=== PATIENT | male | born 1980 | race Caucasian/White ===

== ENCOUNTER 2018-08-05 09:19 | Inpatient (IN) | payer BC ==
[~2018-08-05] VITALS: Ht 182.9 cm; Wt 88.1 kg
--- NOTE | 2018-08-05 09:39 | NUR ---
pt ambulatory with steady gait to room
--- NOTE | 2018-08-05 09:41 | NUR ---
38 Y/O MALE PRESENTS TO ED WITH C/O ABDOMINAL PAIN. "I HAVE SOME ABDOMINAL PAIN. IT'S BEEN A FE WEEKS AND IT'S GOTTEN WORSE. IT GOES INTO MY BACK AND IT'S RIGHT ABOVE MY BELLY BUTTON. I DRANK A LOT SAT NIGHT. I'VE BEEN ON [facility] 325 DAILY BECAUSE I HAVE A CLOT IN MY ARM." NO C/O N/V/D, TRAUMA, SYNCOPE, CP, SOB. 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
[2018-08-05] MEDS ORDERED: SODIUM CHLORIDE 0.9% 1,000 ML IV ONE (09:49)
[2018-08-05] MEDS ORDERED: HYDROmorphone 2 MG/ML, 1ML IVPush PRN ×2 (10:00→11:30)
[2018-08-05] MEDS ORDERED: SODIUM CHLORIDE FLUSH 10ML SYR IVF ONE (10:00)
[2018-08-05] MEDS ORDERED: ONDANSETRON 2MG/ML, 2ML IVPush ONE (10:00)
[2018-08-05] MEDS ORDERED: HYDROmorphone 2 MG/ML, 1ML ONE (10:03)
--- NOTE | 2018-08-05 10:06 | NUR ---
PT WAS A TRANSFER FROM [facility]. PT ARRIVED WITH PIV.
--- NOTE | 2018-08-05 10:13 | NUR ---
PT RESTING ON GURNEY. NO ACUTE DISTRESS NOTED. BEDSIDE. NO NEEDS REQUESTED AT THIS TIME.
[2018-08-05 10:19] LABS: BASOPHILS # (AUTO) 0.03 x10^3/uL (0-0.1); BASOPHILS % (AUTO) 0 % (0-1); EOSINOPHILS # (AUTO) 0.02 x10^3/uL (0-0.4); EOSINOPHILS % (AUTO) 0 % (1-7); LYMPHOCYTES # (AUTO) 1.06 x10^3/uL (1-3.4); LYMPHOCYTES % (AUTO) 14 % (22-44); MD NO; MEAN CORPUSCULAR HEMOGLOBIN 31.2 pg (27.5-34.5); MEAN CORPUSCULAR HGB CONC 34.4 g/dL (33.2-36.2); MEAN CORPUSCULAR VOLUME 90.7 fL (81-97); MEAN PLATELET VOLUME 7.4 fL (7.4-10.4); MONOCYTES # (AUTO) 0.66 x10^3/uL (0.2-0.8); MONOCYTES % (AUTO) 9 % (2-9); NEUTROPHILS # (AUTO) 6.05 x10^3/uL (1.8-6.8); NEUTROPHILS % (AUTO) 77 % (42-75); PLATELET COUNT 159 x10^3/uL (130-400); RED BLOOD COUNT 4.65 x10^6/uL (4.38-5.82); RED CELL DISTRIBUTION WIDTH 12.4 % (9.4-14.8)
[2018-08-05] MEDS ORDERED: OMEP-110 PO (10:20)
[2018-08-05] MEDS ORDERED: ASPI-650 PO (10:20)
[2018-08-05 10:27] LABS: INTERNATIONAL NORMALIZED RATIO 1.02 (0.93-1.1); PROTHROMBIN TIME 10.7 Seconds (9.6-11.5)
[2018-08-05 10:31] LABS: ALBUMIN 3.5 g/dL (3.4-5.0); ANION GAP 5 mmol/L (5-15); CALCIUM 8.5 mg/dL (8.5-10.1); CHLORIDE 107 mmol/L (98-107)
[2018-08-05 10:36] LABS: ALANINE AMINOTRANSFERASE 71 U/L (12-78); ALKALINE PHOSPHATASE 83 U/L (45-117); BILIRUBIN,TOTAL 2.2 mg/dL (0.2-1.0); CHOL/HDL RATIO 2.4; CHOLESTEROL, TOTAL 130 mg/dL (140-239); CREATININE 0.96 mg/dL (0.7-1.3); HDL CHOL % 42 % (26-37); HDL CHOLESTEROL (DIRECT) 55 mg/dL (40-60); LDL CHOLESTEROL,CALCULATED 68 mg/dL (54-169); LDL/HDL RATIO 1.2 (0.5-3.0); TRIGLYCERIDES 36 mg/dL (50-200); VLDL CHOLESTEROL 7 mg/dL (0-25)
--- NOTE | 2018-08-05 11:02 | NUR ---
PT VERBALIZED UNDERSTANDING REGARDING NPO STATUS.
--- NOTE | 2018-08-05 11:03 | NUR ---
REPORT TO TOMMY LECHUGA. ALL QUESTIONS ANSWERED. Addendum: 08/05/18 at 1104 by GARY REPORT TO TOMMY RODRIGUEZ
--- NOTE | 2018-08-05 11:16 | NUR ---
PT TO MRI, THEN MRI TO TRANSPORT PT TO FLOOR.
--- NOTE | 2018-08-05 11:28 | NUR ---
PT TO MRI. PT LEFT WITH ALL PERSONAL BELONGINGS. TORSTEN FROM MRI TOOK PT CHART FOR TRANSPORT AFTER IMAGE
[2018-08-05] MEDS ORDERED: hydrALAzine 20 MG/ML, 1ML IVPush PRN (11:30)
[2018-08-05] MEDS ORDERED: TEMAZEPAM 15 MG CAPSULE PO PRN (11:30)
[2018-08-05] MEDS: ENOXAPARIN 40 MG/0.4 ML SQ SCH (11:30)
[2018-08-05] MEDS: SODIUM CHLORIDE 0.9% 1,000 ML IV SCH ×2 (13:15→19:45)
[2018-08-05] MEDS: PANTOPRAZOLE 40 MG IV IVPush SCH ×2 (13:16→19:45)
[2018-08-05] MEDS: ONDANSETRON 2MG/ML, 2ML IVPush PRN ×2 (13:16→19:46)
[2018-08-05] MEDS: KETOROLAC 30 MG/1 ML IV PRN ×2 (13:16→19:46)
[2018-08-05 14:24] VITALS: BP 103/60
[2018-08-05 18:19] LABS: MICROSCOPIC NOT IND
[2018-08-05 18:23] LABS: CULTURE INDICATED? NO
[2018-08-05 18:29] LABS: AMPHETAMINE SCREEN, URINE Negative (Negative); BARBITURATE SCREEN, URINE Negative (Negative); BENZODIAZEPINE SCREEN, URINE Negative (Negative); CANNABINOID SCREEN, URINE Negative (Negative); COCAINE SCREEN, URINE Negative (Negative); METHADONE SCREEN, URINE Negative (Negative); OPIATE SCREEN, URINE Positive (Negative)
[2018-08-05 20:11] VITALS: BP 98/61
[2018-08-06 00:45] VITALS: BP 110/62
[2018-08-06] MEDS: SODIUM CHLORIDE 0.9% 1,000 ML IV SCH ×3 (01:54→15:59)
[2018-08-06] MEDS: ONDANSETRON 2MG/ML, 2ML IVPush PRN (01:54)
[2018-08-06] MEDS: KETOROLAC 30 MG/1 ML IV PRN (01:54)
[2018-08-06 05:57] LABS: ALBUMIN 2.9 g/dL (3.4-5.0); ANION GAP 10 mmol/L (5-15); CALCIUM 7.9 mg/dL (8.5-10.1); CHLORIDE 113 mmol/L (98-107)
[2018-08-06 06:02] LABS: ALANINE AMINOTRANSFERASE 48 U/L (12-78); ALKALINE PHOSPHATASE 72 U/L (45-117); BILIRUBIN,TOTAL 2.4 mg/dL (0.2-1.0); CREATININE 0.86 mg/dL (0.7-1.3); TOTAL PROTEIN 6.1 g/dL (6.4-8.2)
[2018-08-06 06:04] LABS: BASOPHILS # (AUTO) 0.02 x10^3/uL (0-0.1); BASOPHILS % (AUTO) 0 % (0-1); EOSINOPHILS # (AUTO) 0.08 x10^3/uL (0-0.4); EOSINOPHILS % (AUTO) 1 % (1-7); LYMPHOCYTES # (AUTO) 1.17 x10^3/uL (1-3.4); LYMPHOCYTES % (AUTO) 19 % (22-44); MD NO; MEAN CORPUSCULAR HEMOGLOBIN 31.4 pg (27.5-34.5); MEAN CORPUSCULAR HGB CONC 34.2 g/dL (33.2-36.2); MEAN CORPUSCULAR VOLUME 91.8 fL (81-97); MEAN PLATELET VOLUME 7.4 fL (7.4-10.4); MONOCYTES # (AUTO) 0.69 x10^3/uL (0.2-0.8); MONOCYTES % (AUTO) 11 % (2-9); NEUTROPHILS # (AUTO) 4.12 x10^3/uL (1.8-6.8); NEUTROPHILS % (AUTO) 68 % (42-75); PLATELET COUNT 154 x10^3/uL (130-400); RED BLOOD COUNT 4.27 x10^6/uL (4.38-5.82); RED CELL DISTRIBUTION WIDTH 12.4 % (9.4-14.8)
[2018-08-06 07:30] VITALS: BP 99/53
[2018-08-06] MEDS: PANTOPRAZOLE 40 MG IV IVPush SCH (09:53)
[2018-08-06] MEDS: ENOXAPARIN 40 MG/0.4 ML SQ SCH (11:30)
[2018-08-06 14:18] VITALS: BP 114/71
[2018-08-06] MEDS ORDERED: OMEP-110 PO (15:21)
[2018-08-06] MEDS ORDERED: KETO10TA PO (15:21)
[2018-08-06] MEDS ORDERED: ONDA4TAB13 SL (15:24)
== END 2018-08-06 17:40 | disposition home or self-care (01) | DRG 388 ==
LOC: ED 10:10 → EDIP 10:11 → ED 10:15 → 3NE 12:19
PROVIDERS: ADMIT Internal Medicine; ATTEND Internal Medicine
DX: K56.7 Ileus, unspecified (principal); K85.90 Acute pancreatitis without necrosis or infection, unspecified; D68.59 Other primary thrombophilia; I80.8 Phlebitis and thrombophlebitis of other sites; Z86.718 Personal history of other venous thrombosis and embolism; Z86.72 Personal history of thrombophlebitis; Z86.711 Personal history of pulmonary embolism
CPT/HCPCS: 36415; 74181; 76700; 80053; 80061; 80307; 81003; 82150; 83690; 83735; 84100; 85025; 85610; 96361; 96374; 96375; G0378; J1170; J1885; J2405; C9113; J7030